=== PATIENT | female | born 1990 | race Caucasian/White ===

== ENCOUNTER 2017-03-24 17:25 | Emergency (ER) | payer MEDICAID, SELFPAY ==
[2017-03-24 17:26] VITALS: BP 150/94; PULSE 117; RESP 19; TEMP 36.8; O2SAT 98; BMI 28.6
--- NOTE | 2017-03-24 18:53 | EKG12_ITS ---
Test Reason : PALPITATIONS Blood Pressure : / mmHG Vent. Rate : 114 BPM Atrial Rate : 114 BPM P-R Int : 120 ms QRS Dur : 064 ms QT Int : 328 ms P-R-T Axes : 063 064 031 degrees QTc Int : 452 ms Sinus tachycardia Otherwise normal ECG Confirmed by PAYAL RYAN ([id number]), industrial editor DUSTY CASEY ([id number]) on 03/29/2017 10:04:05 AM Referred By: Clare العراقي Confirmed By:PAYAL RYAN
[2017-03-24 19:29] VITALS: BP 150/98; PULSE 102; RESP 24; O2SAT 99
--- NOTE | 2017-03-24 20:19 | ED.VISSUMM ---
- ER Visit Summary Date of Service: 03/24/17 Chief Complaint: Palpitations History of Present Illness: The patient is a 26 F aunts with palpitations. She denies anxiety. Person from detention states she has been anxious and under stress. She had similar presentation several months ago and diagnosed with anxiety reaction. Patient denies fever, chills night sweats. She denies any URI symptoms. She denies any GI or symptoms. She denies myalgias arthralgias. She denies leg pain, swelling discoloration. There is no history of VTE or any risk factors. Physical Examination: Vital signs are marked for blood pressure of 150/98 with a heart rate 102. Respiratory 24. She is not febrile nor she hypoxic. Head is atraumatic normocephalic. Pupils are equal round reactive. Extraocular muscles are intact. TMs are pearly white with landmarks noted. Nares patent with no drainage. Posterior pharynx without erythema or exudate. Uvula is midline. There is no dysphonia or dysphasia. Trachea is midline. There is no stridor with auscultation of the neck. Heart is regular without murmur, gallop or rub. S1 and S2 are normal. Lungs are clear to auscultation with good movement of air bilaterally. There is no asymmetry, swelling, discoloration, leg vein distention, palpable cords or tenderness along the distribution of the deep venous system. Test Results: G sinus rhythm rate of 114 otherwise normal. Emergency Department Course and Treatment: EKG was obtained to determine if there is any findings suggestive of PW, Georges longer long syndrome or any preexcitation syndrome. Treatment Plan: Appropriate home-going instructions Disposition: Discharge to detention with attendant Impression: 1. Sinus tachycardia documented on EKG 2. Stress/anxiety reaction This note was generated with [employer] software. It may contain incorrect words, spelling, and punctuation that were not noted in review of the chart prior to signing ED Disposition - Plan for ED Patient: Disposition: Home or Assisted Living Chief Complaint: Palpitations Instructions: ED Stress React Referrals: [facility],Out of [Primary Care Provider] - As Needed
--- NOTE | 2017-03-24 20:22 | ED.DCSUM_ITS ---
- ER Visit Summary Date of Service: 03/24/17 Chief Complaint: Palpitations History of Present Illness: The patient is a 26 F aunts with palpitations. She denies anxiety. Person from [facility] states she has been anxious and under stress. She had similar presentation several months ago and diagnosed with anxiety reaction. Patient denies fever, chills night sweats. She denies any URI symptoms. She denies any GI or symptoms. She denies myalgias arthralgias. She denies leg pain, swelling discoloration. There is no history of VTE or any risk factors. Physical Examination: Vital signs are marked for blood pressure of 150/98 with a heart rate 102. Respiratory 24. She is not febrile nor she hypoxic. Head is atraumatic normocephalic. Pupils are equal round reactive. Extraocular muscles are intact. TMs are pearly white with landmarks noted. Nares patent with no drainage. Posterior pharynx without erythema or exudate. Uvula is midline. There is no dysphonia or dysphasia. Trachea is midline. There is no stridor with auscultation of the neck. Heart is regular without murmur, gallop or rub. S1 and S2 are normal. Lungs are clear to auscultation with good movement of air bilaterally. There is no asymmetry, swelling, discoloration, leg vein distention, palpable cords or tenderness along the distribution of the deep venous system. Test Results: G sinus rhythm rate of 114 otherwise normal. Emergency Department Course and Treatment: EKG was obtained to determine if there is any findings suggestive of PW, Georges longer long syndrome or any preexcitation syndrome. Treatment Plan: Appropriate home-going instructions Disposition: Discharge to [facility] with attendant Impression: 1. Sinus tachycardia documented on EKG 2. Stress/anxiety reaction This note was generated with [employer] software. It may contain incorrect words, spelling, and punctuation that were not noted in review of the chart prior to signing ED Disposition - Plan for ED Patient: Disposition: Home or Assisted Living Chief Complaint: Palpitations Instructions: ED Stress React Referrals: [facility],Out of [Primary Care Provider] - As Needed
[2017-03-24 20:36] VITALS: BP 145/95; PULSE 99; RESP 18; O2SAT 99
== END 2017-03-24 20:37 | disposition home or self-care (01) ==
PROVIDERS: Emergency Provider Emergency Medicine
DX: R00.0 Tachycardia, unspecified (principal); F43.9 Reaction to severe stress, unspecified; F41.9 Anxiety disorder, unspecified
CPT/HCPCS: 93005; 99282

== ENCOUNTER → 2017-10-25 09:51 | Outpatient (CLI) | payer MEDICAID, SELFPAY ==
[2017-10-26 11:06] LABS: HIV - WCH Non-Reactive (Nonreactive)
[2017-10-28 04:34] LABS: Rapid Plasmin Reagin (RPR) NONREACTIVE (NONREACTIVE)
[2017-10-28 14:21] LABS: HEPATITIS B SURFACE AG Negative (Negative); HSV 1 IgG < 0.91 index (0.00-0.90); HSV 2 IgG < 0.91 index (0.00-0.90)
== END ==
PROVIDERS: PCP Family Medicine Geriatric Medicine; Visit Provider Nurse Practitioner Women's Health
DX: Z11.3 Encounter for screening for infections with a predominantly sexual mode of transmission (principal)
CPT/HCPCS: 36415; 86592; 86695; 86696; 86703; 87340; 87522

== ENCOUNTER → 2017-10-25 18:26 | Outpatient (CLI) | payer MEDICAID, SELFPAY ==
[2017-10-31 13:24] LABS: HPV Reflexed? NOT INDICATED
== END ==
PROVIDERS: Visit Provider Nurse Practitioner Women's Health
DX: Z12.4 Encounter for screening for malignant neoplasm of cervix (principal)
CPT/HCPCS: 36415; 86592; 86695; 86696; 86703; 87340; 87522; 88175; G0145

== ENCOUNTER 2018-01-10 21:08 | Emergency (ER) | payer MEDICAID, SELFPAY ==
[2018-01-10 21:09] VITALS: BP 158/100; PULSE 116; RESP 16; TEMP 36.6; O2SAT 97; BMI 32.0
[2018-01-10 21:19] VITALS: BP 159/102; PULSE 118; RESP 19; O2SAT 98
--- NOTE | 2018-01-10 21:24 | EKG12_ITS ---
Test Reason : CP Blood Pressure : / mmHG Vent. Rate : 108 BPM Atrial Rate : 108 BPM P-R Int : 118 ms QRS Dur : 072 ms QT Int : 330 ms P-R-T Axes : 054 051 019 degrees QTc Int : 442 ms Sinus tachycardia Possible Left atrial enlargement Borderline ECG Confirmed by ROGELIO GEORGE, SELAM ([id number]), production editor DUSTY CASEY ([id number]) on 01/13/2018 2:50:19 PM Referred By: SIMRAN Confirmed By:SELAM MERCADO MD
--- NOTE | 2018-01-10 21:24 | ED.VISSUMM ---
- ER Visit Summary Date of Service: 01/10/18 Chief Complaint: Headache, diarrhea and chest discomfort History of Present Illness: The patient is a 27 F and has MRDD and anxiety. Lives in a local [facility]. Tonight around 6:30 PM she had a mild headache was treated with Tylenol. She is also had diarrhea. And then developed some chest discomfort. No shortness of breath. No hemoptysis. No leg pain or swelling. No recent travel or surgery. No cardiac history. Physical Examination: Well-appearing young female. Vital signs are stable. She is afebrile. Her initial blood pressure is 158/100. Pulse ox 97% on room air no signs of hypoxia. H EENT exam unremarkable. Neck nontender no lymphadenopathy. No JVD. Lungs clear to auscultation bilaterally. Heart regular rhythm rate about 115. No murmur. Chest wall nontender. No ecchymosis or bruising. Abdomen soft nontender. Normal bowel sounds no peritoneal signs. Patient is moving all 4 extremities. Neurovascular intact. Equal symmetrical peoplesoft tale[employer] manager strength. Dorsi plantar flexion intact. Calves are nontender without edema or cords. Radial pulses are equal and symmetrical. Back nontender. Neurologically she is awake and alert. With no focal motor deficits. Test Results: EKG shows no acute abnormality. Sinus rhythm rate of 108. No change from February 2017 the most recent prior EKGs that we have available. Chest x-ray AP and lateral views show no acute abnormality. Normal cardiac silhouette mediastinum. Lungs unremarkable. Emergency Department Course and Treatment: Patient has an unremarkable exam. Treatment Plan: Repeat exam patient is doing well at 21: 54 PM. Disposition: Discharge Impression: Acute chest pain of uncertain etiology Acute viral syndrome This note was generated with [employer] dictation software. It may contain incorrect words, spelling, and punctuation that were not noted in review of the chart prior to signing ED Disposition - Plan for ED Patient: Disposition: Home or Assisted Living Chief Complaint: Chest Pain Instructions: ED Chest Pain Atypical Unkn Cause Referrals: Bartolo Bolanos Chi, MD [Primary Care Provider] - As Needed
--- NOTE | 2018-01-10 21:27 | ED.DCSUM_ITS ---
- ER Visit Summary Date of Service: 01/10/18 Chief Complaint: Headache, diarrhea and chest discomfort History of Present Illness: The patient is a 27 F and has MRDD and anxiety. [facility] a local [facility]. Tonight around 6:30 PM she had a mild headache was treated with Tylenol. She is also had diarrhea. And then developed some chest discomfort. No shortness of breath. No hemoptysis. No leg pain or swelling. No recent travel or surgery. No cardiac history. Physical Examination: Well-appearing young female. Vital signs are stable. She is afebrile. Her initial blood pressure is 158/100. Pulse ox 97% on room air no signs of hypoxia. H EENT exam unremarkable. Neck nontender no lymphadenopathy. No JVD. Lungs clear to auscultation bilaterally. Heart regular rhythm rate about 115. No murmur. Chest wall nontender. No ecchymosis or bruising. Abdomen soft nontender. Normal bowel sounds no peritoneal signs. Patient is moving all 4 extremities. Neurovascular intact. Equal symmetrical change coordinator strength. Dorsi plantar flexion intact. Calves are nontender without edema or cords. Radial pulses are equal and symmetrical. Back nontender. Neurologically she is awake and alert. With no focal motor deficits. Test Results: EKG shows no acute abnormality. Sinus rhythm rate of 108. No change from February 2017 the most recent prior EKGs that we have available. Chest x-ray AP and lateral views show no acute abnormality. Normal cardiac silhouette mediastinum. Lungs unremarkable. Emergency Department Course and Treatment: Patient has an unremarkable exam. Treatment Plan: Repeat exam patient is doing well at 21: 54 PM. Disposition: Discharge Impression: Acute chest pain of uncertain etiology Acute viral syndrome This note was generated with Info dictation software. It may contain incorrect words, spelling, and punctuation that were not noted in review of the chart prior to signing ED Disposition - Plan for ED Patient: Disposition: Home or Assisted Living Chief Complaint: Chest Pain Instructions: ED Chest Pain Atypical Unkn Cause Referrals: Bartolo Bolanos Chi, MD [Primary Care Provider] - As Needed
--- NOTE | 2018-01-10 21:41 | RAD_ITS ---
STUDY: X-RAY CHEST REASON FOR EXAM: Female, 27 years old. Chest pain and shortness of breath TECHNIQUE: PA and lateral COMPARISON: None. FINDINGS: The lungs are clear and expanded. There is no demonstrated pleural abnormality. Normal size heart. Normal mediastinum and adarsh. Normal visualized pulmonary arteries. Normal visualized aortic arch and descending thoracic aorta. Normal visualized thoracic spine. Normal visualized ribs, clavicles, and shoulders. There is no demonstrated abnormality of the visualized soft tissue structures of the upper abdomen. No change since prior exam RAD/Chest PA and Lateral IMPRESSION: Normal x-ray examination of the chest. Electronically Signed: Dave Mercado MD at 22:21 EST , Service support ,
--- NOTE | 2018-01-10 21:54 | ED.DEP ---
ED Disposition - Plan for ED Patient: Disposition: Home or Assisted Living Chief Complaint: Chest Pain Instructions: ED Chest Pain Atypical Unkn Cause, ED Viral Syndrome Referrals: Bartolo Bolanos Chi, MD [Primary Care Provider] - As Needed
== END 2018-01-10 22:03 | disposition home or self-care (01) ==
LOC: ED 21:36
PROVIDERS: Emergency Provider Emergency Medicine; Family Provider Family Medicine Geriatric Medicine; PCP Family Medicine Geriatric Medicine
DX: R07.9 Chest pain, unspecified (principal); B34.9 Viral infection, unspecified
CPT/HCPCS: 71046; 93005; 99283

== ENCOUNTER → 2018-08-28 12:13 | Outpatient (CLI) | payer MEDICAID, SELFPAY ==
[2018-08-28 17:26] LABS: Absolute Lymphocyte Count 3.21 X10^3/ul (0.83-4.51); Absolute Neutrophil Count 7.3 X10^3/uL (2.0-7.7); Basophil# 0.06 X10^3/uL; Basophil% 0.5 % (0-1); Eosinophil# 0.12 X10^3/uL; Hematocrit 38.4 % (37-47); Lymphocyte # 3.21 X10^3/ul (4.0); Lymphocyte % 27.7 % (19-41); Mean Corp Hgb Conc 31.3 g/gl (32-36); Mean Corpuscular Hgb 27.5 pg (27.0-32.0); Mean Corpuscular Volume 88.1 fL (81-99); Mean Platelet Vol. 10.7 fl (6.2-12.0); Monocyte# 0.89 X10^3/uL; Monocyte% 7.7 % (0-10); Neutrophil # 7.28 X10^3/uL (2.7-7.7); Neutrophil % 62.9 % (47-70); Platelet Count 364 K/mm3 (150-450); RBC Distribution Width CV 13.3 % (11.6-14.6); RBC Distribution Width SD 42.5 fl (35.1-43.9); Red Blood Count 4.36 M/mm3 (4.2-5.4); White Blood Count 11.6 K/mm3 (4.4-11.0)
[2018-08-28 17:32] LABS: POSITIVE COUNT NO; POSITIVE DIFFERENTIAL NO; POSITIVE MORPHOLOGY NO
[2018-08-28 17:41] LABS: ALB/GLOB Ratio 0.6 RATIO (0.9-2.4); AST(SGOT) 14 U/L (15-37); Alanine Aminotransfer ALT/SGPT 19 U/L (13-56); Alkaline Phosphatase 88 U/L (45-117); Anion Gap 9 (5-15); BUN 14 mg/dL (7-18); BUN/Creat Ratio 17.5 RATIO (10-20); Calcium,Total 8.5 mg/dL (8.5-10.1); Chloride 103 mmol/L (98-107); EST Glomerular Filtration Rate 90 mL/min (>60); Est Glom Filt Rate - Afr Amer 109 mL/min (>60); Globulin 4.9 g/dL (2.2-4.2); Glucose 95 mg/dL (74-106); Potassium 3.5 mmol/L (3.5-5.1); Protein, Total 7.9 g/dL (6.4-8.2); Sodium Level 135 mmol/L (136-145); Thyroid Stim Hormone (TSH) 2.58 uIU/mL (0.358-3.74)
== END ==
PROVIDERS: Family Provider Family Medicine Geriatric Medicine; PCP Family Medicine Geriatric Medicine; Visit Provider Family Medicine Geriatric Medicine
DX: R53.83 Other fatigue (principal)
CPT/HCPCS: 36415; 80053; 84443; 85025

== ENCOUNTER → 2018-09-05 16:26 | Outpatient (CLI) | payer MEDICAID, SELFPAY ==
[2018-09-05 16:45] LABS: Absolute Lymphocyte Count 1.85 X10^3/ul (0.83-4.51); Basophil# 0.03 X10^3/uL; Basophil% 0.3 % (0-1); Eosinophils% 0.9 % (0-5); Hematocrit 40.2 % (37-47); Hemoglobin 12.8 g/dl (12.0-15.0); Lymphocyte # 1.85 X10^3/ul (4.0); Lymphocyte % 17.2 % (19-41); Mean Corp Hgb Conc 31.8 g/gl (32-36); Mean Corpuscular Hgb 27.7 pg (27.0-32.0); Mean Platelet Vol. 10.1 fl (6.2-12.0); Monocyte# 0.81 X10^3/uL; Monocyte% 7.5 % (0-10); Neutrophil # 7.96 X10^3/uL (2.7-7.7); Neutrophil % 73.9 % (47-70); Platelet Count 354 K/mm3 (150-450); RBC Distribution Width CV 13.3 % (11.6-14.6); RBC Distribution Width SD 41.3 fl (35.1-43.9); Red Blood Count 4.62 M/mm3 (4.2-5.4); White Blood Count 10.8 K/mm3 (4.4-11.0)
[2018-09-05 16:46] LABS: POSITIVE COUNT NO; POSITIVE DIFFERENTIAL NO; POSITIVE MORPHOLOGY NO
[2018-09-05 17:07] LABS: ALB/GLOB Ratio 0.6 RATIO (0.9-2.4); AST(SGOT) 16 U/L (15-37); Alanine Aminotransfer ALT/SGPT 13 U/L (13-56); Albumin, Serum 3.1 g/dL (3.2-5.0); Alkaline Phosphatase 95 U/L (45-117); Anion Gap 8 (5-15); BUN 14 mg/dL (7-18); BUN/Creat Ratio 17.3 RATIO (10-20); Calcium,Total 8.1 mg/dL (8.5-10.1); Chloride 105 mmol/L (98-107); Creatinine, Serum 0.81 mg/dL (0.55-1.02); EST Glomerular Filtration Rate 89 mL/min (>60); Est Glom Filt Rate - Afr Amer 107 mL/min (>60); Globulin 4.9 g/dL (2.2-4.2); Glucose 87 mg/dL (74-106); Potassium 4.1 mmol/L (3.5-5.1); Sodium Level 136 mmol/L (136-145); Thyroid Stim Hormone (TSH) 1.66 uIU/mL (0.358-3.74)
[2018-09-05 17:26] LABS: hCG Titer Quant., Serum < 1 mIU/mL (1-3)
== END ==
PROVIDERS: Family Provider Family Medicine Geriatric Medicine; PCP Family Medicine Geriatric Medicine; Visit Provider Family Medicine Geriatric Medicine
DX: R10.9 Unspecified abdominal pain (principal); N39.0 Urinary tract infection, site not specified; R19.7 Diarrhea, unspecified
CPT/HCPCS: 36415; 80053; 82274; 83630; 84443; 84702; 85025; 87086; 87177; 87209; 87493; 87506

== ENCOUNTER → 2018-09-05 18:15 | Outpatient (CLI) | payer MEDICAID, SELFPAY ==
--- NOTE | 2018-09-05 18:26 | CT_ITS ---
STUDY: CT ABDOMEN AND PELVIS WITH CONTRAST REASON FOR EXAM: Female, 28 years old. Pain RADIATION DOSAGE (If Supplied By Facility): DLP = ( 1207.82 ) mGycm TECHNIQUE: Transaxial images were obtained from the dome of the diaphragm to the symphysis pubis with oral contrast. 100 ml of Isovue 300 contrast was administered. Sagittal and coronal images were reconstructed. Individualized dose optimization techniques were used for this CT. COMPARISON: None. FINDINGS: The visualized lung bases are clear. The visualized portions of the heart and pericardium are within normal limits. There are no calcified gallstones present. The liver is within normal limits. There are no suspicious hepatic lesions. The spleen is normal in size. The pancreas is within normal limits. The adrenal glands are within normal limits. There are no obstructing renal stones. There is no hydronephrosis. There are no focal renal lesions. Normal visualized stomach. There is no bowel obstruction or inflammation. The appendix is normal. The aorta is normal in caliber. There is no abdominal or pelvic free air, free fluid, or fluid collection. There is mild mesenteric and right lower quadrant lymph nodes prominence. There are no destructive osseous lesions. CT/Abdomen/Pelvis WITH Contrast IMPRESSION: Mild mesenteric and right lower quadrant lymph node prominence. Consider mesenteric adenitis/reactive nodes. Otherwise, unremarkable evaluation. Electronically Signed: Dave Sanders, at 19:24 EDT Tel , Service support ,
== END ==
PROVIDERS: Family Provider Family Medicine Geriatric Medicine; PCP Family Medicine Geriatric Medicine; Referring Provider Family Medicine Geriatric Medicine; Visit Provider Family Medicine Geriatric Medicine
DX: R10.9 Unspecified abdominal pain (principal)
CPT/HCPCS: 36415; 74177; 80053; 82274; 83630; 84443; 84702; 85025; 87086; 87088; 87177; 87209; 87493; 87506; Q9967

== ENCOUNTER → 2018-10-13 11:34 | Outpatient (CLI) | payer MEDICAID, SELFPAY ==
[2018-10-13 13:42] LABS: Absolute Lymphocyte Count 3.82 X10^3/uL (0.83-4.51); Absolute Neutrophil Count 6.6 X10^3/uL (2.0-7.7); Basophil% 0.9 % (0-1); Eosinophils% 0.9 % (0-5); Hematocrit 39.9 % (37-47); Hemoglobin 12.3 g/dL (12.0-15.0); Lymphocyte # 3.82 X10^3/ul (4.0); Lymphocyte % 33.4 % (19-41); Mean Corp Hgb Conc 30.8 g/dL (32-36); Mean Corpuscular Hgb 28.3 pg (27.0-32.0); Mean Corpuscular Volume 91.7 fL (81-99); Mean Platelet Vol. 10.2 fl (6.2-12.0); NRBC Flagged by Analyzer 0 % (0-5); Neutrophil % 57.5 % (47-70); Platelet Count 375 K/mm3 (150-450); RBC Distribution Width SD 43.8 fl (35.1-43.9); Red Blood Count 4.35 M/mm3 (4.2-5.4); White Blood Count 11.5 K/mm3 (4.4-11.0)
[2018-10-13 14:00] LABS: ALB/GLOB Ratio 0.6 RATIO (0.9-2.4); AST(SGOT) 12 U/L (15-37); Alanine Aminotransfer ALT/SGPT 20 U/L (13-56); Albumin, Serum 3.1 g/dL (3.2-5.0); Alkaline Phosphatase 93 U/L (45-117); Anion Gap 4 (5-15); BUN 15 mg/dL (7-18); BUN/Creat Ratio 20.2 RATIO (10-20); Calcium,Total 8.2 mg/dL (8.5-10.1); Chloride 107 mmol/L (98-107); Creatinine, Serum 0.74 mg/dL (0.55-1.02); EST Glomerular Filtration Rate 98 mL/min (>60); Est Glom Filt Rate - Afr Amer 119 mL/min (>60); Globulin 4.9 g/dL (2.2-4.2); Glucose 89 mg/dL (74-106); Potassium 4.2 mmol/L (3.5-5.1); Sodium Level 137 mmol/L (136-145); Thyroid Stim Hormone (TSH) 2.98 uIU/mL (0.358-3.74)
== END ==
PROVIDERS: Family Provider Family Medicine Geriatric Medicine; PCP Family Medicine Geriatric Medicine; Visit Provider Family Medicine Geriatric Medicine
DX: R53.83 Other fatigue (principal)
CPT/HCPCS: 36415; 80053; 84443; 85025

== ENCOUNTER → 2019-09-10 04:22 | Outpatient (CLI) | payer MEDICAID, SELFPAY ==
[2019-03-29 10:20] VITALS: BMI 32.0
[2019-09-10 08:54] LABS: Absolute Lymphocyte Count 3.45 X10^3/uL (0.83-4.51); Absolute Neutrophil Count 5.8 X10^3/uL (2.0-7.7); Basophil# 0.08 X10^3/uL; Basophil% 0.8 % (0-1); Eosinophil# 0.11 X10^3/uL; Eosinophils% 1.1 % (0-5); Hematocrit 42.2 % (37-47); Hemoglobin 13.1 g/dL (12.0-15.0); Lymphocyte # 3.45 X10^3/ul (4.0); Lymphocyte % 33.8 % (19-41); Mean Corpuscular Hgb 28.3 pg (27.0-32.0); Mean Corpuscular Volume 91.1 fL (81-99); Mean Platelet Vol. 10.6 fl (6.2-12.0); Monocyte# 0.73 X10^3/uL; Monocyte% 7.2 % (0-10); NRBC Flagged by Analyzer 0 % (0-5); Neutrophil # 5.81 X10^3/uL (2.7-7.7); Neutrophil % 56.9 % (47-70); Platelet Count 363 K/mm3 (150-450); RBC Distribution Width CV 12.8 % (11.6-14.6); RBC Distribution Width SD 41.7 fl (35.1-43.9); Red Blood Count 4.63 M/mm3 (4.2-5.4); White Blood Count 10.2 K/mm3 (4.4-11.0)
[2019-09-10 09:29] LABS: ALB/GLOB Ratio 0.6 RATIO (0.9-2.4); AST(SGOT) 16 U/L (15-37); Alanine Aminotransfer ALT/SGPT 21 U/L (13-56); Alkaline Phosphatase 80 U/L (45-117); Anion Gap 8 (5-15); BUN 15 mg/dL (7-18); BUN/Creat Ratio 17.7 RATIO (10-20); Calcium,Total 8.7 mg/dL (8.5-10.1); Chloride 103 mmol/L (98-107); Cholesterol 218 mg/dL (200); Creatinine, Serum 0.85 mg/dL (0.55-1.02); EST Glomerular Filtration Rate 84 mL/min (>60); Est Glom Filt Rate - Afr Amer 101 mL/min (>60); Glucose 86 mg/dL (74-106); High Density Lipoprotein 29 mg/dL; Potassium 4.4 mmol/L (3.5-5.1); Sodium Level 136 mmol/L (136-145); Thyroid Stim Hormone (TSH) 3.84 uIU/mL (0.358-3.74); Triglycerides 337 mg/dL; Very Low Density Lipoprotein 67 mg/dL (5-40)
== END ==
PROVIDERS: PCP Family Medicine Geriatric Medicine; Visit Provider Family Medicine Geriatric Medicine
DX: E78.5 Hyperlipidemia, unspecified (principal); R53.83 Other fatigue
CPT/HCPCS: 36415; 80053; 80061; 84443; 85025

== ENCOUNTER → 2019-11-01 08:24 | Outpatient (CLI) | payer MEDICAID, SELFPAY ==
[2019-03-29 10:20] VITALS: BMI 32.0
[2019-11-01 11:19] LABS: Thyroid Stim Hormone (TSH) 2.66 uIU/mL (0.358-3.74)
== END ==
PROVIDERS: PCP Family Medicine Geriatric Medicine; Visit Provider Family Medicine Geriatric Medicine
DX: E03.9 Hypothyroidism, unspecified (principal)
CPT/HCPCS: 36415; 84443

== ENCOUNTER → 2020-04-10 15:00 | Outpatient (CLI) | payer MEDICAID, SELFPAY ==
[2019-03-29 10:20] VITALS: BMI 32.0
[2020-04-16 16:22] LABS: HPV APTIMA, High Risk Negative (Negative)
== END ==
PROVIDERS: PCP Family Medicine Geriatric Medicine; Referring Provider Nurse Practitioner Women's Health; Visit Provider Nurse Practitioner Women's Health
DX: Z12.4 Encounter for screening for malignant neoplasm of cervix (principal)
CPT/HCPCS: 87624; 88175; G0145

== ENCOUNTER → 2020-09-10 09:33 | Outpatient (CLI) | payer MEDICAID, SELFPAY ==
[2019-03-29 10:20] VITALS: BMI 32.0
[2020-09-10 12:22] LABS: Absolute Lymphocyte Count 3.63 X10^3/uL (0.83-4.51); Basophil# 0.09 X10^3/uL; Basophil% 0.8 % (0-1); Eosinophil# 0.05 X10^3/uL; Eosinophils% 0.4 % (0-5); Hematocrit 41.8 % (37-47); Hemoglobin 12.9 g/dL (12.0-15.0); Lymphocyte # 3.63 X10^3/ul (0.83-4.51); Lymphocyte % 31.4 % (19-41); Mean Corp Hgb Conc 30.9 g/dL (32-36); Mean Corpuscular Hgb 27.9 pg (27.0-32.0); Mean Corpuscular Volume 90.5 fL (81-99); Mean Platelet Vol. 10.4 fl (6.2-12.0); Monocyte# 0.73 X10^3/uL; Monocyte% 6.3 % (0-10); NRBC Flagged by Analyzer 0 % (0-5); Neutrophil # 7.03 X10^3/uL (2.7-7.7); Neutrophil % 60.8 % (47-70); Platelet Count 355 K/mm3 (150-450); RBC Distribution Width CV 12.9 % (11.6-14.6); RBC Distribution Width SD 42.7 fl (35.1-43.9); Red Blood Count 4.62 M/mm3 (4.2-5.4); White Blood Count 11.6 K/mm3 (4.4-11.0)
[2020-09-10 12:57] LABS: ALB/GLOB Ratio 0.7 RATIO (0.9-2.4); AST(SGOT) 15 U/L (15-37); Alanine Aminotransfer ALT/SGPT 25 U/L (13-56); Albumin, Serum 3.1 g/dL (3.2-5.0); Alkaline Phosphatase 79 U/L (45-117); Anion Gap 8 (5-15); BUN 11 mg/dL (7-18); Calcium,Total 8.5 mg/dL (8.5-10.1); Chloride 102 mmol/L (98-107); Creatinine, Serum 0.84 mg/dL (0.55-1.02); EST Glomerular Filtration Rate 84 mL/min (>60); Est Glom Filt Rate - Afr Amer 101 mL/min (>60); Globulin 4.7 g/dL (2.2-4.2); Glucose 105 mg/dL (74-106); Potassium 4.2 mmol/L (3.5-5.1); Protein, Total 7.8 g/dL (6.4-8.2); Sodium Level 135 mmol/L (136-145); Thyroid Stim Hormone (TSH) 1.87 uIU/mL (0.358-3.74)
== END ==
PROVIDERS: PCP Family Medicine Geriatric Medicine; Visit Provider Family Medicine Geriatric Medicine
DX: R53.83 Other fatigue (principal)
CPT/HCPCS: 36415; 80053; 84443; 85025

== ENCOUNTER 2020-12-20 13:08 | Emergency (ER) | payer MEDICAID, SELFPAY ==
[2020-12-20 13:09] VITALS: BP 171/120; PULSE 147; RESP 28; TEMP 36.9; O2SAT 100; BMI 37.4
[2020-12-20 13:47] LABS: Absolute Lymphocyte Count 2.36 X10^3/uL (0.83-4.51); Absolute Neutrophil Count 9.6 X10^3/uL (2.0-7.7); Basophil# 0.09 X10^3/uL; Basophil% 0.7 % (0-1); Eosinophil# 0.01 X10^3/uL; Eosinophils% 0.1 % (0-5); Lymphocyte # 2.36 X10^3/ul (0.83-4.51); Lymphocyte % 18.4 % (19-41); Mean Corp Hgb Conc 31.7 g/dL (32-36); Mean Corpuscular Hgb 29.1 pg (27.0-32.0); Mean Corpuscular Volume 91.9 fL (81-99); Mean Platelet Vol. 10.3 fl (6.2-12.0); Monocyte# 0.67 X10^3/uL; Monocyte% 5.2 % (0-10); NRBC Flagged by Analyzer 0 % (0-5); Neutrophil # 9.62 X10^3/uL (2.7-7.7); Neutrophil % 75.1 % (47-70); Platelet Count 389 K/mm3 (150-450); RBC Distribution Width CV 12.8 % (11.6-14.6); Red Blood Count 4.46 M/mm3 (4.2-5.4); White Blood Count 12.8 K/mm3 (4.4-11.0)
[2020-12-20 14:00] LABS: Anion Gap 10 (5-15); BUN 20 mg/dL (7-18); BUN/Creat Ratio 22.9 RATIO (10-20); Calcium,Total 8.5 mg/dL (8.5-10.1); Chloride 105 mmol/L (98-107); Creatinine, Serum 0.87 mg/dL (0.55-1.02); EST Glomerular Filtration Rate 80 mL/min (>60); Est Glom Filt Rate - Afr Amer 97 mL/min (>60); Glucose 108 mg/dL (74-106); Potassium 4.1 mmol/L (3.5-5.1); Sodium Level 137 mmol/L (136-145)
[2020-12-20 14:03] LABS: Amphetamine Urine VISTA NEGATIVE (<1000 ng/mL); Barbiturate Urine VISTA NEGATIVE (< 200 ng/mL); Benzodiazepine Urine VISTA NEGATIVE (< 200 ng/mL); Cocaine Urine VISTA NEGATIVE (< 300 ng/mL); Ecstacy Urine VISTA NEGATIVE (< 500 ng/mL); Methadone Urine VISTA NEGATIVE (< 300 ng/mL); PCP Urine VISTA NEGATIVE (< 25 ng/mL); THC Urine VISTA NEGATIVE (< 50 ng/mL); Vista UDS pH Range 5
[2020-12-20 14:53] LABS: Alcohol, Blood (Medical)-Serum < 3.0 mg/dL
[2020-12-20 14:57] LABS: Internal QC Validated? YES +Cl - CLEAR BKGD; Pregnancy, Serum, hCG Quali. NEGATIVE Negative
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
[2020-12-20 15:38] LABS: AST(SGOT) 18 U/L (15-37); Alanine Aminotransfer ALT/SGPT 19 U/L (13-56); Alkaline Phosphatase 77 U/L (45-117); Bilirubin, Direct 0.09 mg/dL (0.00-0.30); Globulin 5.4 g/dL (2.2-4.2); Protein, Total 8.4 g/dL (6.4-8.2)
[2020-12-20 16:08] VITALS: PULSE 115; RESP 19; O2SAT 100
[2020-12-20 16:57] VITALS: PULSE 108; RESP 17; O2SAT 96
== END 2020-12-20 16:58 | disposition home or self-care (01) ==
PROVIDERS: Emergency Provider Emergency Medicine; PCP Family Medicine Geriatric Medicine
DX: R62.50 Unspecified lack of expected normal physiological development in childhood (principal); F91.9 Conduct disorder, unspecified; Z87.440 Personal history of urinary (tract) infections; Z79.899 Other long term (current) drug therapy
CPT/HCPCS: 80048; 80076; 80307; 82077; 84703; 85025; 87426; 93005; 99283

== ENCOUNTER → 2021-09-17 | Outpatient (CLI) | payer MEDICAID, SELFPAY ==
[2021-09-17 12:33] LABS: Absolute Lymphocyte Count 3.57 X10^3/uL (0.83-4.51); Absolute Neutrophil Count 6.2 X10^3/uL (2.0-7.7); Basophil# 0.09 X10^3/uL; Basophil% 0.8 % (0-1); Eosinophil# 0.16 X10^3/uL; Eosinophils% 1.5 % (0-5); Hematocrit 40.4 % (37-47); Hemoglobin 12.4 g/dL (12.0-15.0); Lymphocyte # 3.57 X10^3/ul (0.83-4.51); Lymphocyte % 32.6 % (19-41); Mean Corp Hgb Conc 30.7 g/dL (32-36); Mean Corpuscular Hgb 28.6 pg (27.0-32.0); Mean Corpuscular Volume 93.3 fL (81-99); Mean Platelet Vol. 11.2 fl (6.2-12.0); Monocyte# 0.88 X10^3/uL; NRBC Flagged by Analyzer 0 % (0-5); Neutrophil # 6.21 X10^3/uL (2.7-7.7); Neutrophil % 56.7 % (47-70); Platelet Count 310 K/mm3 (150-450); RBC Distribution Width CV 12.9 % (11.6-14.6); RBC Distribution Width SD 44.5 fl (35.1-43.9); Red Blood Count 4.33 M/mm3 (4.2-5.4)
[2021-09-17 13:11] LABS: ALB/GLOB Ratio 0.6 RATIO (0.9-2.4); AST(SGOT) 16 U/L (15-37); Alanine Aminotransfer ALT/SGPT 21 U/L (13-56); Albumin, Serum 2.9 g/dL (3.2-5.0); Alkaline Phosphatase 73 U/L (45-117); Anion Gap 6 (5-15); BUN 12 mg/dL (7-18); BUN/Creat Ratio 16.3 RATIO (10-20); Calcium,Total 8.8 mg/dL (8.5-10.1); Chloride 104 mmol/L (98-107); Creatinine, Serum 0.74 mg/dL (0.55-1.02); EST Glomerular Filtration Rate 97 mL/min (>60); Est Glom Filt Rate - Afr Amer 118 mL/min (>60); Globulin 4.8 g/dL (2.2-4.2); Glucose 103 mg/dL (74-106); Potassium 4.3 mmol/L (3.5-5.1); Protein, Total 7.7 g/dL (6.4-8.2); Sodium Level 136 mmol/L (136-145); Thyroid Stim Hormone (TSH) 1.89 uIU/mL (0.358-3.74)
== END | disposition home or self-care (01) ==
LOC: POLAB3 10:07
PROVIDERS: PCP Family Medicine Geriatric Medicine; Visit Provider Family Medicine Geriatric Medicine
DX: R53.83 Other fatigue (principal)
CPT/HCPCS: 36415; 80053; 84443; 85025

== ENCOUNTER 2022-04-29 19:56 | Emergency (ER) | payer MEDICAID, SELFPAY ==
[2022-04-29 19:58] VITALS: BP 172/90; PULSE 140; RESP 18; TEMP 36.7; O2SAT 98; BMI 37.0
[2022-04-29 20:44] LABS: Amphetamine Urine VISTA NEGATIVE (<1000 ng/mL); Barbiturate Urine VISTA NEGATIVE (< 200 ng/mL); Benzodiazepine Urine VISTA NEGATIVE (< 200 ng/mL); Cocaine Urine VISTA NEGATIVE (< 300 ng/mL); Ecstacy Urine VISTA NEGATIVE (< 500 ng/mL); Methadone Urine VISTA NEGATIVE (< 300 ng/mL); PCP Urine VISTA NEGATIVE (< 25 ng/mL); THC Urine VISTA NEGATIVE (< 50 ng/mL); Vista UDS pH Range 6
[2022-04-29 21:46] LABS: Internal QC Validated? YES +Cl - CLEAR BKGD; Pregnancy, Serum, hCG Quali. NEGATIVE Negative
[2022-04-29 21:49] LABS: Anion Gap 9 (5-15); BUN 12 mg/dL (7-18); BUN/Creat Ratio 14.8 RATIO (10-20); Calcium,Total 9.1 mg/dL (8.5-10.1); Chloride 108 mmol/L (98-107); Creatinine, Serum 0.81 mg/dL (0.55-1.02); EST Glomerular Filtration Rate 87 mL/min (>60); Est Glom Filt Rate - Afr Amer 105 mL/min (>60); Estimated Creatinine Clearance 93.34 ml/min; Glucose 124 mg/dL (74-106); Sodium Level 139 mmol/L (136-145)
[2022-04-29 21:54] LABS: Alcohol, Blood (Medical)-Serum < 3.0 mg/dL
[2022-04-29 21:57] LABS: Absolute Lymphocyte Count 2.85 X10^3/uL (0.83-4.51); Absolute Neutrophil Count 8.8 X10^3/uL (2.0-7.7); Basophil# 0.11 X10^3/uL; Basophil% 0.9 % (0-1); Eosinophil# 0.03 X10^3/uL; Eosinophils% 0.2 % (0-5); Hematocrit 40.1 % (37-47); Hemoglobin 12.9 g/dL (12.0-15.0); Lymphocyte # 2.85 X10^3/ul (0.83-4.51); Lymphocyte % 22.7 % (19-41); Mean Corp Hgb Conc 32.2 g/dL (32-36); Mean Corpuscular Hgb 29.1 pg (27.0-32.0); Mean Corpuscular Volume 90.3 fL (81-99); Mean Platelet Vol. 10.8 fl (6.2-12.0); Monocyte# 0.75 X10^3/uL; NRBC Flagged by Analyzer 0 % (0-5); Neutrophil # 8.78 X10^3/uL (2.7-7.7); Platelet Count 363 K/mm3 (150-450); RBC Distribution Width CV 13.4 % (11.6-14.6); RBC Distribution Width SD 44.1 fl (35.1-43.9); Red Blood Count 4.44 M/mm3 (4.2-5.4); White Blood Count 12.6 K/mm3 (4.4-11.0)
--- NOTE | 2022-04-29 22:32 | CM.ED ---
SW Note SW contacted [facility] to inform them of patient needing to be evaluated once medically cleared. Maria L with [facility] requesting documents be faxed to [facility] at faxage [phone] once patient is medically cleared. Plan: evaluation from [facility] once medically cleared Krupa SMITH, LYNN
[2022-04-30 01:19] VITALS: BP 166/95; PULSE 112; RESP 20; O2SAT 100
[2022-04-30] MEDS: Acetaminophen 500 MG Tablet 1000 MG PO (03:53)
[2022-04-30 07:06] VITALS: BP 202/132; PULSE 143; RESP 18; O2SAT 99
[2022-04-30 08:00] VITALS: BP 156/98
--- NOTE | 2022-04-30 08:23 | EKG12_ITS ---
Test Reason : CLERENCE Blood Pressure : / mmHG Vent. Rate : 124 BPM Atrial Rate : 124 BPM P-R Int : 126 ms QRS Dur : 062 ms QT Int : 316 ms P-R-T Axes : 054 044 014 degrees QTc Int : 453 ms Sinus tachycardia Otherwise normal ECG Confirmed by MANUEL GEORGE, GUILHERME ([id number]), slot editor CHRISTOPHER SOOD ([id number]) on 05/03/2022 1:55:29 PM Referred By: Confirmed By:GUILHERME JACKSON MD
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
--- NOTE | 2022-04-30 08:57 | ED.RN ---
[facility] REQUESTED EKG. i FAXED IT. THEY HAVE ALL OTHER DOCUMENTATION THEY NEED. THEY ARE REACHING OUT TO [facility]
[2022-04-30] MEDS: Divalproex Sodium 250 MG Tablet 500 MG PO (10:08)
[2022-04-30] MEDS: Paroxetine 20 MG Tablet PO (10:08)
[2022-04-30] MEDS: Levothyroxine 25 MCG TABLET PO (10:08)
[2022-04-30 10:13] VITALS: BP 146/96; PULSE 121; RESP 18; O2SAT 95
--- NOTE | 2022-04-30 10:32 | ED.RN ---
PATIENT REQUESTED INFORMATION FAXED TO [facility], AND [facility]
--- NOTE | 2022-04-30 11:03 | CM.ED ---
CLARENCE called Steph at [facility] to check on status of patient's referral. Steph said that she has referred patent to [facility], [facility] and [facility]. However, per Steph at [facility] has been unable to get referral due to issues with their fax. CLARENCE called [facility]. They have no behavioral health beds. CLARENCE called [facility] and they did not receive any faxes from [facility]. [facility]' fax is [phone]. CLARENCE requested ammunition supervisor Praveen cazares referral to [facility] and [facility]. CLARENCE updated Steph from [facility]. She advised that she will make referral to [facility]. CLARENCE updated regional craCINDY Mack. Nadja NICHOLS
--- NOTE | 2022-04-30 12:29 | CM.ED ---
CLARENCE Note CLARENCE called [facility] charge master specialist phone. No answer. CLARENCE called Yvonne at [facility]. They have no reviewed the referral yet. CLARENCE called [facility]. They have beds but haven't received referral yet. Nadja NICHOLS
--- NOTE | 2022-04-30 13:22 | CM.ED ---
SW received phone call from [facility]. They declined patient. Nadja NICHOLS
--- NOTE | 2022-04-30 13:30 | CM.ED ---
CLARENCE Note CLARENCE spoke to Steph at [facility]. Reviewed that [facility] Declined. Steph said that patient may need to be reevaluated. CLARENCE advised that per Crisis's rule they need to wait 24 hours to evaluate and Steph said that she thought it was [facility] rule to wait 24 hours for revaluation. CLARENCE spoke to store loss prevention manager Martina busby stated that patient could be reevaluated and RN said that they thought the 24 hour rule was a crisis rule. CLARENCE updated Steph that she can be revaluated. Steph called and stated that she had another referral. CLARENCE spoke to Martina store loss prevention manager who said that patient could be evaluated over the phone. CLARENCE updated Steph that patient could be interviewed over the phone. Steph will call patient. CLARENCE met with patient briefly. She said that she was doing ok and social worker psychiatric advised that crisis would be speaking to her. Nadja NICHOLS
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
--- NOTE | 2022-04-30 15:30 | ED.RN ---
THIS RN WALKED PT OUT TO SKILLED NURSING STAFF MEMBER VEHICLE ON ED RAMP.
== END 2022-04-30 15:30 | disposition home or self-care (01) ==
PROVIDERS: Emergency Provider Emergency Medicine; PCP Family Medicine Geriatric Medicine; Visit Provider Emergency Medicine
DX: R45.851 Suicidal ideations (principal); R00.0 Tachycardia, unspecified; F32.A Depression, unspecified; R62.50 Unspecified lack of expected normal physiological development in childhood
CPT/HCPCS: 80048; 80307; 82077; 84703; 85025; 87811; 93005; 99284

== ENCOUNTER → 2022-10-20 | Outpatient (CLI) | payer MEDICAID, SELFPAY ==
[2022-10-20 12:15] LABS: Absolute Lymphocyte Count 3.11 X10^3/uL (0.83-4.51); Absolute Neutrophil Count 6.6 X10^3/uL (2.0-7.7); Basophil# 0.08 X10^3/uL; Basophil% 0.8 % (0-1); Eosinophil# 0.12 X10^3/uL; Eosinophils% 1.1 % (0-5); Hematocrit 40.3 % (37-47); Hemoglobin 12.5 g/dL (12.0-15.0); Lymphocyte # 3.11 X10^3/ul (0.83-4.51); Lymphocyte % 29.2 % (19-41); Mean Corpuscular Hgb 28.9 pg (27.0-32.0); Mean Corpuscular Volume 93.3 fL (81-99); Mean Platelet Vol. 11.2 fl (6.2-12.0); Monocyte# 0.74 X10^3/uL; Monocyte% 6.9 % (0-10); NRBC Flagged by Analyzer 0 % (0-5); Neutrophil # 6.58 X10^3/uL (2.7-7.7); Neutrophil % 61.7 % (47-70); Platelet Count 363 K/mm3 (150-450); RBC Distribution Width CV 13.3 % (11.6-14.6); RBC Distribution Width SD 45.3 fl (35.1-43.9); Red Blood Count 4.32 M/mm3 (4.2-5.4); White Blood Count 10.7 K/mm3 (4.4-11.0)
[2022-10-20 12:43] LABS: ALB/GLOB Ratio 0.6 RATIO (0.9-2.4); AST(SGOT) 16 U/L (15-37); Alanine Aminotransfer ALT/SGPT 21 U/L (13-56); Albumin, Serum 2.9 g/dL (3.2-5.0); Alkaline Phosphatase 78 U/L (45-117); Anion Gap 6 (5-15); BUN 14 mg/dL (7-18); BUN/Creat Ratio 19.6 RATIO (10-20); Calcium,Total 8.5 mg/dL (8.5-10.1); Chloride 105 mmol/L (98-107); Creatinine, Serum 0.71 mg/dL (0.55-1.02); EST Glomerular Filtration Rate 100 mL/min (>60); Est Glom Filt Rate - Afr Amer 121 mL/min (>60); Globulin 4.6 g/dL (2.2-4.2); Glucose 112 mg/dL (74-106); Potassium 4.4 mmol/L (3.5-5.1); Protein, Total 7.5 g/dL (6.4-8.2); Sodium Level 138 mmol/L (136-145); Thyroid Stim Hormone (TSH) 2.23 uIU/mL (0.358-3.74)
== END | disposition home or self-care (01) ==
LOC: POLAB3 09:19
PROVIDERS: PCP Family Medicine Geriatric Medicine; Visit Provider Family Medicine Geriatric Medicine
DX: R53.83 Other fatigue (principal)
CPT/HCPCS: 36415; 80053; 84443; 85025